=== PATIENT | female | born 1945 | race Caucasian/White ===

== ENCOUNTER 2017-02-15 15:31 | Emergency (ER) | payer MEDICARE, OTHER ==
[2017-02-15 15:47] VITALS: BP 140/57
[2017-02-15] MEDS ORDERED: Sodium Chloride 0.9% 10 ML Syringe FLUSH PRN ×2 (16:21→17:56)
[2017-02-15] MEDS ORDERED: Sodium Chloride 0.9% 1,000 ML IV ONE (16:22)
[2017-02-15] MEDS ORDERED: Diatrizoate Meglumine/Diatrizoate Sodium 37% 120 ML Bottle PO ONE (17:16)
[2017-02-15] MEDS ORDERED: Iopamidol 612 MG/ML 150 ML Bottle IVPUSH ONE (17:56)
--- NOTE | 2017-02-15 19:17 | EDM.PDOC ---
ED HPI GI/ABDOMINAL - General Chief Complaint: Abdominal Pain Stated Complaint: ABDOMINAL PAIN AND GAS Time Seen by Provider: 02/15/17 16:17 Source of Information: Reports: Patient, Family (daughter) History Limitations: Reports: No limitations - History of Present Illness INITIAL COMMENTS - FREE TEXT/NARRATIVE: Patient presents for evaluation and treatment of abdominal bloat and discomfort. Patient reports that her symptoms started about one or 2 hours prior to arrival in the ER. She states that her abdominal discomfort is currently a 1/10. She states that it is worst it was a 10 out of 10. She reports the bumps in the road on the way over to the ER or worsened her abdominal pain. She describes as involving her entire abdomen. Patient states she's never had any pain this severe before. She states that she can hear her bowel sounds grumbling and this concerned her. She did take a Zantac around 2 PM today. Patient denies any fevers, chills, malaise, nausea or vomiting. She reports her last bowel movement was this morning. She states that it was liquidy and lumpy, this is an normal for her. She has not noticed any blood in her stool. She states that she has not been passing any gas today. She denies any urinary symptoms. Patient reports that she had a Faby fundoplication for a had a hernia done on December 19. She is scheduled to have followup with her surgeon next month. She states that it was a severe hiatal hernia. Surgery was done at [facility]. Other abdominal surgeries including cholecystectomy. - Related Data Allergies/ADRs: Allergies Allergy/AdvReac Type Severity Reaction Status Date / Time esomeprazole [From Nexium] Allergy Edema Verified 02/15/17 15:41 fexofenadine [From Liliya] Allergy Other Verified 02/15/17 15:41 sertraline [From Zoloft] Allergy Other Verified 02/15/17 15:41 Home Meds: Home Meds Allopurinol [Zyloprim] 100 mg PO DAILY 02/15/17 [History] Aspirin [Halfprin] 81 mg PO DAILY 02/15/17 [History] Escitalopram [Lexapro] 20 mg PO DAILY 02/15/17 [History] LORazepam 0.5 mg PO BID PRN 02/15/17 [History] Levothyroxine [Synthroid] 100 mcg PO ACBREAKFAST 02/15/17 [History] Lisinopril 10 mg PO DAILY 02/15/17 [History] Omeprazole 40 mg PO BIDAC 02/15/17 [History] Simvastatin [Zocor] 5 mg PO BEDTIME 02/15/17 [History] Triamterene/Hydrochlorothiazid [Triamterene-HCTZ 75-50 MG] 0.5 tab PO ASDIRECTED 02/15/17 [History] traMADol [Ultram] 50 mg PO BID PRN 02/15/17 [History] Past Medical History Cardiovascular History: Reports: High cholesterol, Hypertension Psychiatric History: Reports: Anxiety, Depression - Past Surgical History GI Surgical History: Reports: Cholecystectomy, Hernia repair/other Social & Family History - Tobacco Use Smoking Status *Q: Never Smoker Second Hand Smoke Exposure: No - Recreational Drug Use Recreational Drug Use: No ED ROS GENERAL - Review of Systems Review Of Systems: See Below Constitutional: Denies: fever, chills, malaise GI/Abdominal: Reports: Abdominal pain, Other (bloating). Denies: Bloody stool, Flatus, Hematochezia, Melena, Nausea, Vomiting : Reports: no symptoms ED EXAM, GI/ABD - Physical Exam Exam: See Below Exam Limited By: No limitations General Appearance: alert, WD/WN, no apparent distress Respiratory/Chest: no respiratory distress, lungs clear, normal breath sounds Cardiovascular: normal peripheral pulses, regular rate, rhythm, no murmur GI/Abdominal: normal bowel sounds, soft, non tender, distention. No: guarding, rebound Neurological: alert, oriented, normal cognition Psychiatric: normal affect, normal mood Skin Exam: Warm, Dry, Normal color Course - Vital Signs Last Recorded V/S: Last Vital Signs Temp 36.7 C 02/15/17 15:41 Pulse 69 02/15/17 15:41 Resp 18 02/15/17 15:41 BP 140/57 L 02/15/17 15:41 Pulse Ox 98 02/15/17 15:41 - Orders/Labs/Meds Orders: Active Orders 24 hr Category Date Time Status Peripheral IV Care [RC] . DIRECTED Care 02/15/17 16:22 Active Abdomen Pelvis w Cont [CT] Stat Exams 02/15/17 16:21 Taken Peripheral IV Insertion Adult [OM.PC] Routine Oth 02/15/17 16:20 Ordered Labs: Laboratory Tests 02/15/17 02/15/17 02/15/17 Range/Units 16:15 16:21 16:35 WBC 8.19 (3.98-10.04) K/mm3 RBC 3.38 L (3.98-5.22) M/mm3 Hgb 10.8 L (11.2-15.7) gm/L Hct 31.4 L (34.1-44.9) % MCV 92.9 (79.4-94.8) fl MCH 32.0 (25.6-32.2) pg MCHC 34.4 (32.2-35.5) g/dl RDW Std Deviation 46.5 H (36.4-46.3) fL Plt Count 199 (182-369) K/mm3 MPV 10.7 (9.4-12.3) fl Neutrophils % (Manual) 80 H (40-60) % Band Neutrophils % 0 (0-10) % Lymphocytes % (Manual) 12 L (20-40) % Atypical Lymphs % 3 % Monocytes % (Manual) 4 (2-10) % Eosinophils % (Manual) 0 L (0.7-5.8) % Basophils % (Manual) 1 (0.1-1.2) Platelet Estimate Adequate Plt Morphology Comment Normal RBC Morph Comment Normal Sodium 142 (136-145) mEq/L Potassium 3.3 L (3.5-5.1) mEq/L Chloride 104 (98-107) mEq/L Carbon Dioxide 28 (21-32) mEq/L Anion Gap 13.3 (5-15) BUN 13 (7-18) mg/dL Creatinine 1.1 H (0.55-1.02) mg/dL Est Cr Clr Drug Dosing 39.92 mL/min Estimated GFR (MDRD) 49 (>60) mL/min BUN/Creatinine Ratio 11.8 L (14-18) Glucose 126 H (83-115) mg/dL Calcium 8.3 L (8.5-10.1) mg/dL Total Bilirubin 0.2 (0.2-1.0) mg/dL AST 15 (15-37) U/L ALT 18 (14-59) U/L Alkaline Phosphatase 83 (46-116) U/L C-Reactive Protein 0.3 (<1.0) mg/dL Total Protein 6.3 L (6.4-8.2) g/dl Albumin 3.7 (3.4-5.0) g/dl Globulin 2.6 gm/dL Albumin/Globulin Ratio 1.4 (1-2) Lipase 165 (73-393) U/L Urine Color Light yellow (Yellow) Urine Appearance Clear (Clear) Urine pH 6.5 (5.0-8.0) Ur Specific [place] 1.015 (1.005-1.030) Urine Protein Negative (Negative) Urine Glucose (UA) Negative (Negative) Urine Ketones Negative (Negative) Urine Occult Blood Negative (Negative) Urine Nitrite Negative (Negative) Urine Bilirubin Negative (Negative) Urine Urobilinogen 0.2 (0.2-1.0) Ur Leukocyte Esterase Negative (Negative) Urine RBC 0-5 (0-5) /hpf Urine WBC 0-5 (0-5) /hpf Ur Squamous Epith Cells 0-5 (0-5) /hpf Urine Bacteria Not seen (FEW) /hpf Urine Mucus Not seen (FEW) /hpf Urinalysis Comment Meds: Medications Discontinued Medications Generic Name Dose Route Start Last Admin Trade Name Freq PRN Reason Stop Dose Admin Diatrizoate Meglum/Diatrizoate Sod 90 ml 02/15/17 17:16 02/15/17 18:33 Gastrografin 37% PO 02/15/17 17:17 90 ml ONETIME ONE Administration Sodium Chloride 1,000 mls @ 100 mls/hr 02/15/17 16:22 02/15/17 16:58 Normal Saline IV 02/16/17 02:21 100 mls/hr ONETIME ONE Administration Iopamidol 125 ml 02/15/17 17:56 02/15/17 18:33 Isovue-300 (61%) IVPUSH 02/15/17 17:57 125 ml ONETIME ONE Administration Sodium Chloride 10 ml 02/15/17 16:21 02/15/17 17:55 Saline Flush FLUSH 10 ml ASDIRECTED PRN Administration Keep Vein Open Sodium Chloride 10 ml 02/15/17 17:56 02/15/17 18:33 Saline Flush FLUSH 10 ml ONETIME PRN Administration IV FLUSH - Radiology Interpretation Free Text/Narrative:: CT of the abdomen and pelvis with IV and oral contrast impression per Vrad: Small recurrent hiatal hernia. No acute intra-abdominal findings. CT Results Date: 02/15/17 - Re-Assessments/Exams Free Text/Narrative Re-Assessment/Exam: 02/15/17 19:40 Patient was offered medication for the discomfort, she declined. labs have returned. I discussed the labs and the CT results with the patient. Her bloating is not from about obstruction. Possibly from a small recurrent hiatal hernia. I will discharge her home at this time. She is to follow up with her surgeon. She should continue with her current plan of care. Rturn to the ER should her symptoms change or worsen. Departure - Departure Time of Disposition: 19:36 Disposition: Home, Self-Care 01 Condition: good Clinical Impression: Hiatal hernia Instructions: Hiatal Hernia Referrals: PCP,Not In Area [Primary Care Provider] - Mitchell Hernandez MD [Physician] - Forms: ED Department Discharge Additional Instructions: Follow-up with surgeon as planned. Follow-up with PCP as needed. OTC tylenol or motrin as needed for pain. Please return to the ER should your symptoms change or worsen. - My Orders Last 24 Hours: My Active Orders 02/15/17 16:20 Peripheral IV Insertion Adult [OM.PC] Routine 02/15/17 16:21 Abdomen Pelvis w Cont [CT] Stat 02/15/17 16:22 Peripheral IV Care [RC] . DIRECTED - Assessment/Plan Last 24 Hours: My Active Orders 02/15/17 16:20 Peripheral IV Insertion Adult [OM.PC] Routine 02/15/17 16:21 Abdomen Pelvis w Cont [CT] Stat 02/15/17 16:22 Peripheral IV Care [RC] . DIRECTED
--- NOTE | 2017-02-18 08:34 | CT ---
CT abdomen and pelvis Technique: Multiple axial sections were obtained from above the dome of the diaphragm inferiorly through the pubic symphysis. Intravenous and oral contrast has been given. Delayed images were also obtained through the abdomen and pelvis. Comparison: No previous abdominal imaging is available. Findings: Visualized lung bases are clear. Previous surgery noted within the stomach with small to moderate sized hiatal hernia. Liver shows no focal parenchymal abnormality. Previous cholecystectomy noted. Adrenal glands show no nodule. Kidneys show symmetric contrast enhancement without hydronephrosis. Incidental cyst noted within the left kidney measuring about 1.6 cm. Pancreas appears within normal limits. Aorta shows no aneurysmal dilatation. No retroperitoneal adenopathy or mesenteric abnormalities are seen. Small amount of air noted within the bladder. Please correlate if there has been recent instrumentation. No pelvic mass or adenopathy is seen. No free fluid or inflammatory change is seen. Delayed images show several additional small low-density lesions within the left kidney compatible with additional small cysts. Contrast is seen within the ureters and within the bladder. Bone window settings were reviewed which appear within normal limits for the patient's age. Impression: 1. Small to moderate sized hiatal hernia with evidence of previous stomach surgery. 2. Other incidental findings as noted above. Diagnostic code #3 I agree with preliminary report issued by [employer] (preliminary report dictated on 02/15/17, 8:12 PM Central Time)
== END 2017-02-15 19:55 | disposition home or self-care (01) ==
LOC: JD.ED 15:31
DX: K44.9 Diaphragmatic hernia without obstruction or gangrene (principal); E78.00 Pure hypercholesterolemia, unspecified; I10 Essential (primary) hypertension; F41.9 Anxiety disorder, unspecified; F32.9 Major depressive disorder, single episode, unspecified; Z79.82 Long term (current) use of aspirin; Z79.899 Other long term (current) drug therapy; Z90.49 Acquired absence of other specified parts of digestive tract; Z88.8 Allergy status to other drugs, medicaments and biological substances
CPT/HCPCS: 36415; 74177; 80053; 81001; 83690; 85025; 86140; 96360; 96361; 99284; J7040; J7050; Q9963; Q9967; 99283